=== PATIENT | male | born 1975 | race Caucasian/White ===

== ENCOUNTER 2016-03-09 18:21 | Emergency (ER) | payer OTHER ==
[~2016-03-09] VITALS: Ht 167.6 cm; Wt 86.6 kg
[~2016-03-09 18:21] MED LIST: AMITRIPTYLINE H50 MG PO; BUPROPION HCL150 M2 PO; ELAVIL150 MG PO; HYCODAN SYRUP480 ML PO; HYDROCHLOROTHIA25 MG PO; HYDROXYZINE HCL25 MG PO; KWELL TP; NOHOMEMEDS; QUETIAPINE FUM100 MG PO; RANITIDINE HCL150 MG PO; RINGWORM14.2 GM TP; TAMIFLU75 MG PO; TESSALON PERLE100 MG PO; VENTOLIN HFA18 GM IH; WELLBUTRIN XL150 MG PO; ZOFRAN ODT4 MG PO
[2016-03-09] MEDS ORDERED: ATARAX,VISTARIL50 MG PO (20:36)
[2016-03-09 21:07] VITALS: BP 112/99
== END 2016-03-09 21:08 | disposition home or self-care (01) ==
LOC: RME 18:21 → EME 18:21 → RME 21:08
DX: S40.861A Insect bite (nonvenomous) of right upper arm, initial encounter (principal); S40.862A Insect bite (nonvenomous) of left upper arm, initial encounter; S20.469A Insect bite (nonvenomous) of unspecified back wall of thorax, initial encounter; S20.369A Insect bite (nonvenomous) of unspecified front wall of thorax, initial encounter; W57.XXXA Bitten or stung by nonvenomous insect and other nonvenomous arthropods, initial encounter; I10 Essential (primary) hypertension; J45.909 Unspecified asthma, uncomplicated; F17.200 Nicotine dependence, unspecified, uncomplicated
CPT/HCPCS: 99281; 99283; J1200

== ENCOUNTER 2016-03-24 17:26 | Emergency (ER) | payer OTHER ==
[~2016-03-24] VITALS: Ht 167.6 cm; Wt 88.1 kg
[~2016-03-24 17:26] MED LIST changes: +ATARAX,VISTARIL50 MG PO
[2016-03-24 18:11] LABS: ADD MIUA? YES; BILIRUBIN NEGATIVE; BLOOD LARGE; COLOR YELLOW ((YELLOW)); GLUCOSE (STRIP) NEGATIVE; KETONES NEGATIVE; LEUKOCYTES SMALL; NITRITE NEGATIVE; PROTEIN (STRIP) NEGATIVE; SPECIFIC GRAVITY 1.009 (1.000-1.030); UROBILINOGEN 0.2 MG/DL (0.2-1.0)
[2016-03-24 18:12] LABS: MCH 31.1 PG (29.0-34.0); MCHC 35.3 G/DL (30.0-36.0); MCV 88.1 FL (86-99); MEAN PLAT.VOLUME 10.2 uM^3 (9.0-12.4); PLATELET COUNT 353 K/uL (156-360); RBC DIS.WIDTH-CV 12.8 % (11.8-14.6); RBC DIS.WIDTH-SD 39.9 % (39-53); RED BLOOD COUNT 4.54 M/uL (4.00-5.50); WHITE BLOOD COUNT 7.9 K/uL (4.1-10.2)
[2016-03-24 18:19] LABS: CHLORIDE 104 mEq/L (99-109); POTASSIUM 3.6 mEq/L (3.7-5.4); SODIUM 142 mEq/L (136-147)
[2016-03-24 18:21] LABS: GLUCOSE 84 mg/dL (70-99)
[2016-03-24 18:22] LABS: ANION GAP 13 MEQ/L (2-14)
[2016-03-24 18:24] LABS: GFR ESTIMATE (CALCULATED) > 59 mL/min/
[2016-03-24 18:25] LABS: UREA NITROGEN (BUN) 16 mg/dL (9-23)
[2016-03-24 18:46] LABS: BACTERIA NONE SEEN /HPF; EPITHELIAL CELLS RARE /HPF; MUCUS TRACE /LPF; RED BLOOD CELLS TNTC /HPF (0-5); UCUL ADDED? YES; UNCLASSIFIED CASTS 0-5 /LPF; WHITE BLOOD CELLS TNTC /HPF (0-5)
[2016-03-24] MEDS ORDERED: TORADOL10 MG PO (20:58)
[2016-03-24] MEDS ORDERED: ZOFRAN4 MG PO (20:58)
[2016-03-24] MEDS ORDERED: PERCOCET 5/31 TABLET PO (20:58)
[2016-03-24 21:20] VITALS: BP 138/86
[2016-03-25] MEDS ORDERED: PERCOCET 5/31 TABLET PO (16:21)
[2016-03-25] MEDS ORDERED: TORADOL10 MG PO (16:22)
[2016-03-25] MEDS ORDERED: WELLBUTRIN SR150 MG PO (16:23)
[2016-03-25] MEDS ORDERED: WELLBUTRIN100 MG PO (16:23)
[2016-03-25] MEDS ORDERED: AMBIEN10 MG PO (16:25)
[2016-03-25] MEDS ORDERED: KLONOPIN1 MG PO (16:25)
[2016-03-25] MEDS ORDERED: PROMETHAZINE HC25 M1 PO (16:26)
[2016-03-25] MEDS ORDERED: ZOFRAN4 MG PO (16:26)
[2016-03-25] MEDS ORDERED: INDERAL20 MG PO (16:42)
[2016-03-25] MEDS ORDERED: [UNRECOGNIZED DRUG - CODE] PO (16:42)
== END 2016-03-24 21:21 | disposition home or self-care (01) ==
LOC: EME 17:26
DX: N20.1 Calculus of ureter (principal); G89.29 Other chronic pain; M54.5 Low back pain; Z79.891 Long term (current) use of opiate analgesic; Z87.442 Personal history of urinary calculi; F17.200 Nicotine dependence, unspecified, uncomplicated; J45.909 Unspecified asthma, uncomplicated
CPT/HCPCS: 74176; 80048; 81003; 85027; 87086; 99281; 99284; J1885

== ENCOUNTER → 2016-03-28 | Outpatient (CLI) | payer OTHER ==
[~2016-03-28] VITALS: Ht 167.6 cm; Wt 89.4 kg
[~2016-03-28] MED LIST changes: +AMBIEN10 MG PO; +INDERAL20 MG PO; +KLONOPIN1 MG PO; +PERCOCET 5/31 TABLET PO; +PROMETHAZINE HC25 M1 PO; +TORADOL10 MG PO; +WELLBUTRIN SR150 MG PO; +WELLBUTRIN100 MG PO; +ZOFRAN4 MG PO; +[UNRECOGNIZED DRUG - CODE] PO
== END | disposition home or self-care (01) ==
LOC: AMB 07:55
PROC: 0TJ94ZZ Inspection of Ureter, Percutaneous Endoscopic Approach (ICD-10-PCS; principal; 2016-03-28)
DX: N20.1 Calculus of ureter (principal); Z53.9 Procedure and treatment not carried out, unspecified reason

== ENCOUNTER 2016-04-01 14:09 | Emergency (ER) | payer OTHER ==
[~2016-04-01] VITALS: Ht 167.6 cm; Wt 88.9 kg
[2016-04-01 15:37] LABS: COLOR ORANGE ((YELLOW)); SPECIFIC GRAVITY 1.029 (1.000-1.030)
[2016-04-01 15:38] LABS: ADD MIUA? YES; BLOOD LARGE; UROBILINOGEN 0.2 MG/DL (0.2-1.0)
[2016-04-01 15:49] LABS: RED BLOOD CELLS TNTC /HPF (0-5)
[2016-04-01 15:50] LABS: BACTERIA 2+ /HPF; EPITHELIAL CELLS 1+ /HPF; MUCUS NONE SEEN /LPF; UCUL ADDED? YES; WHITE BLOOD CELLS TNTC /HPF (0-5)
[2016-04-01] MEDS ORDERED: TORADOL10 MG PO (16:46)
[2016-04-01] MEDS ORDERED: CIPRO500 MG PO (16:46)
[2016-04-01] MEDS ORDERED: PERCOCET 5/31 TABLET PO (16:46)
[2016-04-01] MEDS ORDERED: ZOFRAN ODT4 MG PO (16:46)
[2016-04-01 17:18] VITALS: BP 125/75
[2016-04-04] MEDS ORDERED: FLOMAX0.4 MG PO (14:30)
== END 2016-04-01 17:19 | disposition home or self-care (01) ==
LOC: EME 14:09
PROVIDERS: Nurse Practitioner Family
DX: G89.18 Other acute postprocedural pain (principal); R10.9 Unspecified abdominal pain; Z87.442 Personal history of urinary calculi; J45.909 Unspecified asthma, uncomplicated; F17.200 Nicotine dependence, unspecified, uncomplicated
CPT/HCPCS: 74000; 81003; 87086; 99281; 99284; J1885

== ENCOUNTER 2016-04-07 05:20 | Day surgery (SDC) | payer OTHER ==
[~2016-04-07] VITALS: Ht 167.6 cm; Wt 88.6 kg
[~2016-04-07 05:20] MED LIST changes: +CIPRO500 MG PO; +FLOMAX0.4 MG PO
[2016-04-07] MEDS ORDERED: RISPERDAL1 MG PO (06:02)
[2016-04-07] MEDS ORDERED: PYRIDIUM100 MG PO (06:05)
[2016-04-07 06:06] VITALS: BP 121/70
[2016-04-07 10:05] VITALS: BP 105/71
[2016-04-07 11:07] VITALS: BP 100/64
== END 2016-04-07 11:20 | disposition home or self-care (01) ==
LOC: SDC 05:20
PROVIDERS: Urology
DX: N20.1 Calculus of ureter (principal); I10 Essential (primary) hypertension; K21.9 Gastro-esophageal reflux disease without esophagitis; J45.909 Unspecified asthma, uncomplicated; Z84.1 Family history of disorders of kidney and ureter
CPT/HCPCS: 74420; 82365 90; 93005; C1769; C1876; J0290; J1170; J1580; J2250; J2405; J3010; J7050

== ENCOUNTER 2016-04-11 21:18 | Emergency (ER) | payer OTHER ==
[~2016-04-11] VITALS: Ht 167.6 cm; Wt 87.5 kg
[~2016-04-11 21:18] MED LIST changes: +PYRIDIUM100 MG PO; +RISPERDAL1 MG PO
[2016-04-12 00:19] VITALS: BP 131/75
== END 2016-04-12 00:20 | disposition home or self-care (01) ==
LOC: EME 21:18
DX: G89.18 Other acute postprocedural pain (principal); R10.9 Unspecified abdominal pain; R30.0 Dysuria; R31.9 Hematuria, unspecified; Z87.442 Personal history of urinary calculi; J45.909 Unspecified asthma, uncomplicated; F17.200 Nicotine dependence, unspecified, uncomplicated
CPT/HCPCS: 74000; 99281; 99284

== ENCOUNTER 2016-06-13 17:51 | Emergency (ER) | payer OTHER ==
[~2016-06-13] VITALS: Ht 167.6 cm; Wt 86.2 kg
[2016-06-13] MEDS ORDERED: ROBAXIN500 MG PO (18:45)
[2016-06-13] MEDS ORDERED: ZOFRAN ODT4 MG PO (18:46)
[2016-06-13 18:55] VITALS: BP 125/89
== END 2016-06-13 18:57 | disposition home or self-care (01) ==
LOC: EME 17:51
DX: S13.4XXA Sprain of ligaments of cervical spine, initial encounter (principal); V49.40XA Driver injured in collision with unspecified motor vehicles in traffic accident, initial encounter; I10 Essential (primary) hypertension; F17.200 Nicotine dependence, unspecified, uncomplicated
CPT/HCPCS: 99281; 99283

== ENCOUNTER 2016-11-08 11:31 | Emergency (ER) | payer OTHER ==
[~2016-11-08] VITALS: Ht 167.6 cm; Wt 82.7 kg
[~2016-11-08 11:31] MED LIST changes: +ROBAXIN500 MG PO
[2016-11-08 12:02] LABS: HEMATOCRIT 44.6 % (38.0-50.0); MCH 29.7 PG (29.0-34.0); MCHC 33.4 G/DL (30.0-36.0); MCV 88.8 FL (86-99); MEAN PLAT.VOLUME 9.8 uM^3 (9.0-12.4); PLATELET COUNT 345 K/uL (156-360); RBC DIS.WIDTH-CV 12.8 % (11.8-14.6); RBC DIS.WIDTH-SD 41.6 % (39-53); RED BLOOD COUNT 5.02 M/uL (4.00-5.50); WHITE BLOOD COUNT 11.3 K/uL (4.1-10.2)
[2016-11-08 12:10] LABS: CHLORIDE 106 mEq/L (99-109); POTASSIUM 4.3 mEq/L (3.7-5.4); SODIUM 139 mEq/L (136-147)
[2016-11-08 12:12] LABS: GLUCOSE 109 mg/dL (70-99)
[2016-11-08 12:14] LABS: ANION GAP 6 MEQ/L (2-14)
[2016-11-08 12:16] LABS: GFR ESTIMATE (CALCULATED) > 59 mL/min/
[2016-11-08 12:17] LABS: UREA NITROGEN (BUN) 8 mg/dL (9-23)
[2016-11-08 14:07] LABS: ADD MIUA? YES; BILIRUBIN NEGATIVE; BLOOD LARGE; COLOR YELLOW ((YELLOW)); GLUCOSE (STRIP) NEGATIVE; KETONES NEGATIVE; LEUKOCYTES NEGATIVE; NITRITE NEGATIVE; PROTEIN (STRIP) NEGATIVE; SPECIFIC GRAVITY 1.018 (1.000-1.030); UROBILINOGEN 0.2 MG/DL (0.2-1.0)
[2016-11-08 14:13] LABS: BACTERIA NONE SEEN /HPF; EPITHELIAL CELLS NONE SEEN /HPF; MUCUS TRACE /LPF; RED BLOOD CELLS TNTC /HPF (0-5); UCUL ADDED? YES; WHITE BLOOD CELLS 0-5 /HPF (0-5)
[2016-11-08 15:19] LABS: TROP-I INTERPRETATION NEGATIVE; TROPONIN-I < 0.01 ng/mL (0.0-0.30)
[2016-11-08] MEDS ORDERED: ULTRAM50 MG PO (16:19)
[2016-11-08 16:43] VITALS: BP 117/78
== END 2016-11-08 16:46 | disposition home or self-care (01) ==
LOC: EME 11:31
PROVIDERS: Physician Assistant Medical
DX: R10.9 Unspecified abdominal pain (principal); N20.0 Calculus of kidney; I10 Essential (primary) hypertension; J45.909 Unspecified asthma, uncomplicated; K21.9 Gastro-esophageal reflux disease without esophagitis; F32.9 Major depressive disorder, single episode, unspecified; F41.9 Anxiety disorder, unspecified; F17.200 Nicotine dependence, unspecified, uncomplicated; F19.10 Other psychoactive substance abuse, uncomplicated
CPT/HCPCS: 71020; 74176; 80048; 81003; 84484; 85027; 87086; 93005; 99281; 99284; J2270

== ENCOUNTER 2016-12-25 15:43 | Emergency (ER) | payer OTHER ==
[~2016-12-25] VITALS: Ht 167.6 cm; Wt 84.7 kg
[~2016-12-25 15:43] MED LIST changes: +ULTRAM50 MG PO
[2016-12-25 17:13] LABS: HEMATOCRIT 39.7 % (38.0-50.0); MCH 30.3 PG (29.0-34.0); MCHC 33.8 G/DL (30.0-36.0); MCV 89.8 FL (86-99); MEAN PLAT.VOLUME 9.2 uM^3 (9.0-12.4); PLATELET COUNT 303 K/uL (156-360); RBC DIS.WIDTH-CV 12.6 % (11.8-14.6); RBC DIS.WIDTH-SD 41.5 % (39-53); RED BLOOD COUNT 4.42 M/uL (4.00-5.50); WHITE BLOOD COUNT 8.2 K/uL (4.1-10.2)
[2016-12-25 17:23] LABS: CHLORIDE 102 mEq/L (99-109)
[2016-12-25 17:24] LABS: POTASSIUM 4.3 mEq/L (3.7-5.4); SODIUM 136 mEq/L (136-147)
[2016-12-25 17:25] LABS: GLUCOSE 86 mg/dL (70-99)
[2016-12-25 17:27] LABS: ANION GAP 7 MEQ/L (2-14)
[2016-12-25 17:29] LABS: GFR ESTIMATE (CALCULATED) > 59 mL/min/
[2016-12-25 17:30] LABS: UREA NITROGEN (BUN) 9 mg/dL (9-23)
[2016-12-25] MEDS ORDERED: FLEXERIL10 MG PO (18:27)
[2016-12-25 18:45] VITALS: BP 129/91
== END 2016-12-25 18:46 | disposition home or self-care (01) ==
LOC: EME 15:43
PROVIDERS: Physician Assistant Medical
DX: S16.1XXA Strain of muscle, fascia and tendon at neck level, initial encounter (principal); S06.0X0A Concussion without loss of consciousness, initial encounter; V49.40XA Driver injured in collision with unspecified motor vehicles in traffic accident, initial encounter; Y92.410 Unspecified street and highway as the place of occurrence of the external cause; F90.9 Attention-deficit hyperactivity disorder, unspecified type; F41.9 Anxiety disorder, unspecified; F32.9 Major depressive disorder, single episode, unspecified; Z88.8 Allergy status to other drugs, medicaments and biological substances; F17.200 Nicotine dependence, unspecified, uncomplicated
CPT/HCPCS: 70450; 72125; 74177; 80048; 85027; 99281; 99283; J7030

== ENCOUNTER 2017-04-28 14:09 | Emergency (ER) | payer OTHER ==
[~2017-04-28] VITALS: Ht 167.6 cm; Wt 80.6 kg
[~2017-04-28 14:09] MED LIST changes: +FLEXERIL10 MG PO
[2017-04-28 17:04] LABS: BASOPHIL (%) 0.4 % (0-1); EOSINOPHIL (%) 7.5 % (0-5); EOSINOPHIL COUNT 0.6 K/uL (0-0.3); HEMATOCRIT 44.5 % (38.0-50.0); HEMOGLOBIN 14.9 G/DL (12.5-16.6); IMMATURE GRANULOCYTE (%) 0.2 % (0.0-0.7); LYMPHOCYTE (%) 27.3 % (15-42); LYMPHOCYTE COUNT 2.3 K/uL (1.0-2.8); MCH 30.6 PG (29.0-34.0); MCHC 33.5 G/DL (30.0-36.0); MCV 91.4 FL (86-99); MONOCYTE (%) 7.1 % (3-12); MONOCYTE COUNT 0.6 K/uL (0-0.8); NEUTROPHIL (%) 57.5 % (45-76); NEUTROPHIL COUNT 4.9 K/uL (1.8-6.4); PLATELET COUNT 322 K/uL (156-360); RBC DIS.WIDTH-CV 12.8 % (11.8-14.6); RED BLOOD COUNT 4.87 M/uL (4.00-5.50); WHITE BLOOD COUNT 8.4 K/uL (4.1-10.2)
[2017-04-28 17:13] LABS: CHLORIDE 100 mEq/L (99-109); POTASSIUM 3.7 mEq/L (3.7-5.4); PTT 34.6 SEC (25-37); SODIUM 140 mEq/L (136-147)
[2017-04-28 17:15] LABS: GLUCOSE 86 mg/dL (70-99)
[2017-04-28 17:18] LABS: CREATININE 0.9 mg/dL (0.6-1.3); GFR ESTIMATE (CALCULATED) > 59 mL/min/ (58.99-99999)
[2017-04-28 17:19] LABS: UREA NITROGEN (BUN) 7 mg/dL (9-23)
[2017-04-28 17:27] LABS: TROP-I INTERPRETATION NEGATIVE; TROPONIN-I < 0.01 ng/mL (0.0-0.30)
[2017-04-28 17:48] LABS: HDL CHOLESTEROL 30 MG/DL (Desirable>=40); LDL CHOLESTEROL 133 mg/dL (Desirable<100); NON-HDL CHOLESTEROL 167 mg/dL (Desirable<160); TOTAL CHOLESTEROL 197 mg/dL (Desirable<200); TRIGLYCERIDES 171 MG/DL (Normal: <150)
[2017-04-28] MEDS ORDERED: NAPROSYN500 MG PO (19:27)
[2017-04-28] MEDS ORDERED: FLEXERIL10 MG PO (19:27)
[2017-04-28 19:52] VITALS: BP 117/75
[2017-04-29 09:30] LABS: HEMOGLOBIN A1c (GLYCOHEMOGLOB) 5.2 % (Below 5.7)
== END 2017-04-28 19:53 | disposition home or self-care (01) ==
LOC: EME 14:09
PROVIDERS: Physician Assistant
DX: G56.31 Lesion of radial nerve, right upper limb (principal); M25.511 Pain in right shoulder; R20.0 Anesthesia of skin; Z71.6 Tobacco abuse counseling; F17.210 Nicotine dependence, cigarettes, uncomplicated; J45.909 Unspecified asthma, uncomplicated; I10 Essential (primary) hypertension; K21.9 Gastro-esophageal reflux disease without esophagitis; F32.9 Major depressive disorder, single episode, unspecified; F41.9 Anxiety disorder, unspecified; F31.9 Bipolar disorder, unspecified; Z88.6 Allergy status to analgesic agent; Z88.8 Allergy status to other drugs, medicaments and biological substances
CPT/HCPCS: 70450; 80048; 80061; 81003; 83036; 84484; 85025; 85610; 85730; 99281; 99284

== ENCOUNTER 2017-07-02 22:47 | Emergency (ER) | payer OTHER ==
[~2017-07-02] VITALS: Ht 167.6 cm; Wt 73.5 kg
[~2017-07-02 22:47] MED LIST changes: +NAPROSYN500 MG PO
[2017-07-02 23:22] LABS: HEMATOCRIT 41.2 % (38.0-50.0); HEMOGLOBIN 13.8 G/DL (12.5-16.6); MCH 30.9 PG (29.0-34.0); MCHC 33.5 G/DL (30.0-36.0); MCV 92.2 FL (86-99); PLATELET COUNT 367 K/uL (156-360); RBC DIS.WIDTH-CV 13.8 % (11.8-14.6); RBC DIS.WIDTH-SD 46.5 % (39-53); RED BLOOD COUNT 4.47 M/uL (4.00-5.50); WHITE BLOOD COUNT 10.5 K/uL (4.1-10.2)
[2017-07-02 23:35] LABS: CHLORIDE 100 mEq/L (99-109); POTASSIUM 4.3 mEq/L (3.7-5.4); SODIUM 140 mEq/L (136-147)
[2017-07-02 23:37] LABS: GLUCOSE 99 mg/dL (70-99)
[2017-07-02 23:41] LABS: CREATININE 0.9 mg/dL (0.6-1.3); GFR ESTIMATE (CALCULATED) > 59 mL/min/ (58.99-99999)
[2017-07-02 23:42] LABS: UREA NITROGEN (BUN) 8 mg/dL (9-23)
[2017-07-03] LABS: ALBUMIN 4.3 g/dL (3.2-4.8)
[2017-07-03 00:02] LABS: TOTAL PROTEIN 7.2 g/dL (6.4-8.3)
[2017-07-03 00:04] LABS: TOTAL BILIRUBIN 0.3 mg/dL (0.0-1.0)
[2017-07-03 00:05] LABS: SERUM ETHYL ALCOHOL < 10 mg/dL
[2017-07-03 00:06] LABS: ALKALINE PHOSPHATASE 74 IU/L (3-129)
[2017-07-03 00:08] LABS: AST (GOT) 15 IU/L (2-34); DIRECT BILIRUBIN 0.2 mg/dL (0.0-0.3); SALICYLATE < 5.0 MG/DL (15-30)
[2017-07-03 00:09] LABS: ACETAMINOPHEN (TYLENOL) < 10 mcg/mL (10-30); ALT (GPT) 12 IU/L (3-49); CREATINE KINASE 400 IU/L (1-294)
[2017-07-03 00:42] LABS: APPEARANCE SL.HAZY ((CLEAR)); BILIRUBIN NEGATIVE; BLOOD NEGATIVE; COLOR YELLOW ((YELLOW)); GLUCOSE (STRIP) NEGATIVE; KETONES 5; LEUKOCYTES NEGATIVE; NITRITE NEGATIVE; PROTEIN (STRIP) 30; SPECIFIC GRAVITY 1.019 (1.000-1.030); UROBILINOGEN 0.2 MG/DL (0.2-1.0)
[2017-07-03 00:49] LABS: BACTERIA NONE SEEN /HPF; EPITHELIAL CELLS NONE SEEN /HPF; MUCUS TRACE /LPF; RED BLOOD CELLS 0-5 /HPF (0-5); UCUL ADDED? NO; WHITE BLOOD CELLS 0-5 /HPF (0-5)
[2017-07-03] MEDS ORDERED: AMBIEN10 MG PO (00:49)
[2017-07-03] MEDS ORDERED: AMITRIPTYLINE100 MG PO (00:49)
[2017-07-03] MEDS ORDERED: STRATTERA40 MG PO (00:50)
[2017-07-03] MEDS ORDERED: ELAVIL50 MG PO (00:50)
[2017-07-03] MEDS ORDERED: BUPROPION HCL100 M1 PO (00:51)
[2017-07-03] MEDS ORDERED: RISPERDAL3 MG PO (00:51)
[2017-07-03] MEDS ORDERED: DEPAKOTE ER500 MG PO (00:52)
[2017-07-03] MEDS ORDERED: LAMICTAL100 MG PO (00:53)
[2017-07-03] MEDS ORDERED: CATAPRES0.1 MG PO (00:53)
[2017-07-03] MEDS ORDERED: HYDROCHLOROTHIA25 MG PO (00:53)
[2017-07-03] MEDS ORDERED: BUSPAR15 MG PO (00:53)
[2017-07-03 01:15] VITALS: BP 114/82
[2017-07-03 01:17] LABS: AMPHETAMINE NEGATIVE (500 ng/mL); BARBITURATES NEGATIVE (200 ng/mL); BENZODIAZEPINES PRESUMPTIVE POSITIVE (150 ng/mL); BUPRENORPHINE PRESUMPTIVE POSITIVE (10 ng/mL); COCAINE NEGATIVE (150 ng/mL); METHADONE NEGATIVE (200 ng/mL); METHAMPHETAMINE NEGATIVE (500 ng/mL); OPIATES (MORPHINE) NEGATIVE (100 ng/mL); OXYCODONE NEGATIVE (100 ng/mL); PHENCYCLIDINE NEGATIVE (25 ng/mL); PROPOXYPHENE NEGATIVE (300 ng/mL); THC CANNABINOIDS NEGATIVE (50 ng/mL); TRICYCLIC ANTIDEPRESSANTS PRESUMPTIVE POSITIVE (300 ng/mL)
[2017-07-03 01:52] LABS: BENZODIAZEPINES, URINE SCREEN POSITIVE (200 ng/mL)
== END 2017-07-03 01:59 | disposition left against medical advice (07) ==
LOC: EME 22:47
DX: F19.90 Other psychoactive substance use, unspecified, uncomplicated (principal); Z53.21 Procedure and treatment not carried out due to patient leaving prior to being seen by health care provider; F41.9 Anxiety disorder, unspecified; I10 Essential (primary) hypertension; K21.9 Gastro-esophageal reflux disease without esophagitis; J45.909 Unspecified asthma, uncomplicated; F32.9 Major depressive disorder, single episode, unspecified; F31.9 Bipolar disorder, unspecified; F17.200 Nicotine dependence, unspecified, uncomplicated; Z88.6 Allergy status to analgesic agent; Z88.8 Allergy status to other drugs, medicaments and biological substances
CPT/HCPCS: 70450; 71045; 80048; 80076; 81003; 82550; 84999; 85027; 93005; 99281; 99285; G0480; J7030

== ENCOUNTER 2017-09-26 21:21 | Emergency (ER) | payer OTHER ==
[~2017-09-26] VITALS: Ht 167.6 cm; Wt 75.0 kg
[~2017-09-26 21:21] MED LIST changes: +AMITRIPTYLINE100 MG PO; +BUPROPION HCL100 M1 PO; +BUSPAR15 MG PO; +CATAPRES0.1 MG PO; +DEPAKOTE ER500 MG PO; +ELAVIL50 MG PO; +LAMICTAL100 MG PO; +RISPERDAL3 MG PO; +STRATTERA40 MG PO
[2017-09-26 21:59] LABS: BASOPHIL (%) 0.3 % (0-1); EOSINOPHIL (%) 2.7 % (0-5); EOSINOPHIL COUNT 0.3 K/uL (0-0.3); HEMATOCRIT 37.6 % (38.0-50.0); HEMOGLOBIN 12.7 G/DL (12.5-16.6); IMMATURE GRANULOCYTE (%) 0.4 % (0.0-0.7); LYMPHOCYTE COUNT 0.9 K/uL (1.0-2.8); MCH 30.5 PG (29.0-34.0); MCHC 33.8 G/DL (30.0-36.0); MCV 90.4 FL (86-99); MONOCYTE (%) 7.2 % (3-12); MONOCYTE COUNT 0.9 K/uL (0-0.8); NEUTROPHIL (%) 82.4 % (45-76); NEUTROPHIL COUNT 10.2 K/uL (1.8-6.4); PLATELET COUNT 327 K/uL (156-360); RBC DIS.WIDTH-CV 13.3 % (11.8-14.6); RBC DIS.WIDTH-SD 44.1 % (39-53); RED BLOOD COUNT 4.16 M/uL (4.00-5.50); WHITE BLOOD COUNT 12.4 K/uL (4.1-10.2)
[2017-09-26 22:13] LABS: CHLORIDE 104 mEq/L (99-109); POTASSIUM 3.6 mEq/L (3.7-5.4); SODIUM 141 mEq/L (136-147)
[2017-09-26 22:15] LABS: GLUCOSE 86 mg/dL (70-99)
[2017-09-26 22:18] LABS: SERUM ETHYL ALCOHOL < 10 mg/dL
[2017-09-26 22:19] LABS: CREATININE 0.9 mg/dL (0.6-1.3); GFR ESTIMATE (CALCULATED) > 59 mL/min/ (58.99-99999)
[2017-09-26 22:21] LABS: UREA NITROGEN (BUN) 9 mg/dL (9-23)
[2017-09-26 22:22] LABS: ACETAMINOPHEN (TYLENOL) < 10 mcg/mL (10-30); SALICYLATE < 5.0 MG/DL (15-30)
[2017-09-27 00:18] VITALS: BP 111/63
== END 2017-09-27 00:22 | disposition home or self-care (01) ==
LOC: EME → EDBD 21:21 → EME 21:21
PROVIDERS: Emergency Medicine
DX: F41.9 Anxiety disorder, unspecified (principal); I10 Essential (primary) hypertension; K21.9 Gastro-esophageal reflux disease without esophagitis; J45.909 Unspecified asthma, uncomplicated; F32.9 Major depressive disorder, single episode, unspecified; F31.9 Bipolar disorder, unspecified; F17.200 Nicotine dependence, unspecified, uncomplicated; Z98.890 Other specified postprocedural states; Z88.6 Allergy status to analgesic agent; Z88.8 Allergy status to other drugs, medicaments and biological substances
CPT/HCPCS: 80048; 85025; 90837; 99281; 99285; G0480